=== PATIENT | male | born 1980 | race Asian ===

== ENCOUNTER → 2024-04-29 15:01 | Outpatient (REF) | payer OTHER, SELFPAY | LOC: DHSLP 15:01 | PROVIDERS: ATTENDING PHYSICIAN Student in an Organized Health Care Education/Training Program | DX: G47.33 Obstructive sleep apnea (adult) (pediatric) (principal) | CPT/HCPCS: 95800 ==

== ENCOUNTER → 2024-05-06 13:38 | Outpatient (REF) | payer OTHER, SELFPAY | LOC: HWRAD 13:38 | PROVIDERS: ATTENDING PHYSICIAN Student in an Organized Health Care Education/Training Program | DX: Z72.0 Tobacco use (principal); R91.1 Solitary pulmonary nodule; D35.01 Benign neoplasm of right adrenal gland; N28.1 Cyst of kidney, acquired; K80.20 Calculus of gallbladder without cholecystitis without obstruction | CPT/HCPCS: 71250; 74150 ==

== ENCOUNTER → 2024-11-01 10:29 | Outpatient (REF) | payer OTHER, SELFPAY | LOC: HWRAD 10:29 | PROVIDERS: ATTENDING PHYSICIAN Internal Medicine Critical Care Medicine; FAMILY PHYSICIAN Student in an Organized Health Care Education/Training Program | DX: R91.8 Other nonspecific abnormal finding of lung field (principal) | CPT/HCPCS: 71250 ==